=== PATIENT | female | born 1995 | race Caucasian/White ===

== ENCOUNTER 2019-01-27 21:05 | Emergency (ER) | payer OTHER, BC, SELFPAY ==
[2019-01-27 21:11] VITALS: BP 151/84; PULSE 104; RESP 20; TEMP 36.9; O2SAT 100; BMI 18.8
--- NOTE | 2019-01-27 21:42 | ED.HA ---
HPI - Headache General Chief Complaint: Headache Stated Complaint: yellow fluid draining from nose and migraine Time Seen by Provider: 01/27/19 21:42 Source: patient Mode of arrival: ambulatory Limitations: no limitations History of Present Illness HPI Narrative: Patient is a 23-year-old female here for evaluation of right-sided headache. She states she does have a history of headaches or this 1 feels slightly different than prior headaches. She also stated that earlier today she had episodes where she was draining clear fluid out of the left nostril and then turned yellow fluid. She stated this happened when she would bend forward. She denied any head injuries. She states she did have sinus surgery 2 years ago but nothing currently. She does state she does having some sinus congestion. No vision changes. No balance issues. No fevers. Related Data Allergies Allergy/AdvReac Type Severity Reaction Status Date / Time No Known Drug Allergies Allergy Verified 01/27/19 21:15 Review of Systems Constitutional Denies fever(s) and Reports headache(s) ENT Ears, Nose, Mouth, and Throat: Denies vertigo, Denies dizziness and Reports headache(s) Comments: Drainage from left nostril Cardiovascular Denies dyspnea Respiratory Denies dyspnea Musculoskeletal Denies myalgias and Denies arthralgias Integumentary/Breasts Denies rash Neurologic Denies confusion, Denies vertigo, Denies dizziness and Reports headache(s) Psychiatric Denies confusion Hematologic/Lymphatic Denies easy bleeding and Denies easy bruising [facility] Medical History Chronic headaches (Acute) Social History Smoking Status: Never smoker Social History Smoking Status: Never smoker Exam Initial Vital Signs Initial Vital Signs: Vital Signs Temperature 98.5 F 01/27/19 21:11 Pulse Rate 104 H 01/27/19 21:11 Respiratory Rate 20 01/27/19 21:11 Blood Pressure 151/84 H 01/27/19 21:11 Pulse Oximetry 100 01/27/19 21:11 Const General: cooperative, healthy appearing, comfortable, well developed, well groomed and No acute distress Orientation: alert, awake and oriented x3 HENMT Head: normal to inspection and normocephalic Ears: TM's normal bilaterally Nose: external nose normal, nares normal, septum normal, No epistaxis, No nasal discharge and No nasal polyp Face and sinus: face symmetric and tenderness on the left maxilla Mouth: oral mucosae normal Eyes Pupils: PERRL EOM: EOM intact bilaterally Resp Effort & Inspection: normal respiratory effort Auscultation: clear to auscultation bilaterally Cardio Rate: regular rate Rhythm: regular rhythm Pulses: radial pulses present Skin Lesions: no lesions Rashes: no rashes Neuro General: alert, awake and oriented x3 Cognition: normal cognition Speech: speech normal Gait: normal gait Motor: muscle tone normal throughout Sensory Exam: no sensory deficits noted Extrem General: normal to inspection and capillary refill normal Psych Appearance: grossly normal and well kempt Course Vital Signs - 8 hr 01/27/19 21:11 01/27/19 22:49 Temperature 98.5 F Pulse Rate 104 H 84 Respiratory Rate 20 Blood Pressure 151/84 H 117/61 Pulse Oximetry 100 98 MDM - Headache MDM Narrative Medical decision making narrative: The patient is afebrile. No head trauma. She did have a sinus surgery but that was 2 years ago. I have low suspicion that she has draining CSF from her left nostril which is what she was concerned about because she Google her symptoms. She does have a history of headaches. She also has symptoms concerning for sinus disease I suspect that the drainage was secondary to the sinus disease or even an atypical migraine causing these symptoms. She denied offer for medications here in the emergency department for her headache. She has had a CT scan of her head in the past for evaluation of her headaches. Informed her that we could potentially do a CT scan today to evaluate for sinus disease. There is no indication for antibiotics. Patient was given return precautions and follow-up instructions. She had no drainage here. She expressed understanding and agreement plan. Discharge Plan Departure Patient Disposition: Home Clinical Impression: Rhinorrhea Headache Qualifiers: Headache type: unspecified Headache chronicity pattern: unspecified pattern Intractability: not intractable Qualified Code(s): R51 - Headache Discharge Date/Time: 01/27/19 22:52 Interventions: ED Discharge Assessment Last Done: 01/27/19 22:49 Instructions: DI for Sinusitis Activity Restrictions/Additional Instructions: Recommend you start taking a decongestant like we discussed. Contact her primary care doctor for follow-up. You can contact [phone] to talk with the health human resources professional to establish her primary provider here in the area. Return to the emergency department for any new or worsening symptoms
[2019-01-27 22:49] VITALS: BP 117/61; PULSE 84; O2SAT 98
== END 2019-01-27 22:52 | disposition home or self-care (01) ==
PROVIDERS: Emergency Provider Emergency Medicine
DX: J34.89 Other specified disorders of nose and nasal sinuses (principal); R51 Headache
CPT/HCPCS: 99282

== ENCOUNTER → 2020-06-01 10:42 | Outpatient (CLI) | payer OTHER, SELFPAY ==
--- NOTE | 2020-06-01 10:44 | DI.US.S_ITS ---
LIMITED ULTRASOUND OF LEFT BREAST: 06/01/2020 CLINICAL: Painful lumpy left breast. Baseline ultrasound. No prior exams were available for comparison. Color flow and real-time ultrasound of the left breast 9-11 o'clock region were performed. Frye scale images of the real-time examination were reviewed. No mass at the palpable abnormality site. A few small ducts and ridge of fibroglandular tissue. IMPRESSION: NEGATIVE There is no sonographic evidence of malignancy at the site of palpable abnormality. Exam findings were conveyed to the patient. Patient is advised to monitor for significant change. This exam was interpreted at Station ID: [id number]. Electronically Signed By: Regino Smith M.D. slc/:06/01/2020 11:52:38 letter sent: Normal Exam Ultrasound BI-RADS: 1 Negative
== END ==
PROVIDERS: PCP Nurse Practitioner Family; Referring Provider Nurse Practitioner Family; Visit Provider Nurse Practitioner Family
DX: N64.4 Mastodynia (principal); N63.20 Unspecified lump in the left breast, unspecified quadrant
CPT/HCPCS: 76642

== ENCOUNTER 2020-08-02 15:05 | Emergency (ER) | payer OTHER, SELFPAY ==
[2020-08-02] VITALS (11 sets, daily range): BP systolic 102–156; BP diastolic 61–84; PULSE 73–107; RESP 15–24; TEMP 36.5; O2SAT 94–100; BMI 20.5
--- NOTE | 2020-08-02 17:20 | DI.RAD.S_ITS ---
PROCEDURE: XR CHEST 1V INDICATIONS: chest pain TECHNIQUE: One view of the chest was acquired. COMPARISON: None. FINDINGS: Surgical changes and devices: None. Lungs and pleura: Lungs are clear. No pleural effusions or pneumothorax. Mediastinum: Mediastinal contours appear normal. Heart size is normal. Bones and chest wall: No suspicious bony lesions. Overlying soft tissues appear unremarkable. IMPRESSION: Portable chest within normal limits. Dictated by: Cayetano Faith M.D. on 08/02/2020 at 16:41 Approved by: Cayetano Faith M.D. on 08/02/2020 at 16:41
[2020-08-02 17:27] LABS: Add Manual Diff / Slide Review NO; Basophils Absolute Auto 100 /uL (0-100); Basophils Percent Auto 0.6 % (0-2); Eosinophils Absolute Auto 600 /uL (0-450); Eosinophils Percent Auto 6.1 % (2-4); Hematocrit 39.8 % (36-46); Hemoglobin 13.4 g/dL (12.0-16.0); Lymphocytes Absolute Auto 2900 /uL (1100-4500); Lymphocytes Percent Auto 30.4 % (25-40); Mean Corpuscular HGB Conc 33.8 % (30-36); Mean Corpuscular Hemoglobin 31.1 PG (26-34); Mean Corpuscular Volume 92.2 fL (80-100); Monocytes Absolute Auto 800 /uL (0-900); Monocytes Percent Auto 8.3 % (3-14); Neutrophils Absolute Auto 5200 /uL (1500-7000); Neutrophils Percent Auto 54.6 % (50-75); Platelet Count 446 X10^3/uL (150-400); Red Blood Cell Count 4.31 X10^6/uL (4.0-5.2); Red Cell Distribution Width 12.5 % (11.6-14.8); White Blood Cell Count 9.5 X10^3/uL (4.5-11.0)
[2020-08-02 17:29] LABS: INR 1.1 (0.9-1.3); Prothrombin Time 12.3 SECONDS (10.1-12.7)
[2020-08-02 17:31] LABS: PTT Partial Thromboplastin Tim 35 SECONDS (26.4-36.2)
[2020-08-02 17:33] LABS: Alanine Aminotransferase 17 IU/L (<35); Albumin 4.7 g/dL (3.5-5.0); Albumin Globulin Ratio 1.2 (1.0-2.8); Alkaline Phosphatase 108 U/L (38-126); Aspartate Aminotransferase 30 IU/L (14-36); BUN Creatinine Ratio 23.1 (6-22); Bilirubin Total 0.5 mg/dL (0.2-1.3); Blood Urea Nitrogen 15 mg/dL (7-17); Calcium 10.3 mg/dL (8.4-10.2); Carbon Dioxide 29 mmol/L (22-32); Chloride 105 mmol/L (98-107); Creatine Kinase 83 U/L (30-135); Estimated Glomerular Filt Rate > 60.0 mL/min (>60); Globulin 3.8 g/dL (1.7-4.1); Glucose 95 mg/dL (70-100); HEMOLYSIS < 15 (0-50); Lipase 67 U/L (23-300); Sodium 140 mmol/L (137-145); Total Protein 8.5 g/dL (6.3-8.2)
[2020-08-02 17:45] LABS: Troponin I < 0.012 ng/mL (0.01-0.034)
--- NOTE | 2020-08-02 17:48 | ED_ITS ---
HPI - Chest Pain <NEW Cook - Last Filed: 08/03/20 00:04> General Chief Complaint: Chest Pain Stated Complaint: states bad chest pain, hurts to breath Time Seen by Provider: 08/02/20 16:54 Source: patient Mode of arrival: Ambulatory Limitations: no limitations History of Present Illness HPI narrative: This is a 24-year-old female, nonsmoker, who has past medical history significant for frequent headaches and sinus infection with surgery presents to ED with chief complain of left-sided chest discomfort radiating to left shoulder and neck. Patient reports increases with bending forward and in supine position and taking breaths in. Prior to this patient had headache and n lorna pain that she woke up with 4 days ago and she was seen at walk-in clinic yesterday and received IM injection of Toradol and discharged to home with prednisone which she had not started yet. However, her headache and neck pain seemed resolved at this time. Patient reports chest pain is pretty constant and sharp in character. Patient denies recent bedrest, long travel, calf pain, history of blood clots, or currently taking estrogen hormones. Patient denies significant history of cardiac disease in family. She uses marijuana very rarely and denies other drug use. Patient denies fever, chills, lightheadedness, short of breath. She feels fatigue and reports some nausea but only when she brushes her teeth which is unusual for her and has been burping all day. Patient had taken ibuprofen this morning without much improvement. Patient had runny nose and sneezing 2 weeks ago but this has been resolved. LMP 2 days ago. Patient denies IV drug use. Related Data Home Medications Medication Instructions Recorded Confirmed acetaminophen 500 mg tablet 1,000 mg PO QID PRN 04/24/20 08/01/20 ibuprofen 200 mg tablet 800 mg PO Q6H PRN tab 04/24/20 08/01/20 Previous Rx's Medication Instructions Recorded prednisone 20 mg tablet 20 mg PO DAILY 3 Days #3 tab 08/01/20 Allergies Allergy/AdvReac Type Severity Reaction Status Date / Time shellfish derived Allergy Severe Anaphylaxis Verified 08/01/20 16:23 melons Allergy Severe Anaphylaxis Uncoded 05/28/20 09:00 Review of Systems <NEW Cook - Last Filed: 08/03/20 00:04> Review of Systems Narrative: General: Denies fever, chills, (+) fatigue, malaise, sweats. HEENT: Denies sinus pain, ear pain, sore throat, difficulty swallowing, dizziness. Respiratory: Denies dyspnea, cough, wheezing, hemoptysis, sputum. Cardiovascular: See HPI Gastrointestinal: Denies (+) nausea when brushing teeth, (+) frequent belching, vomiting, abdominal pain, diarrhea, constipation, melena. : Denies dysuria, frequency, incontinence, hematuria, urinary retention. Musculoskeletal: Denies weakness, joint pain or bony pain. Skin: Denies rash, skin lesions, or other. Neurologic: Denies weakness, headache, numbness, change in speech, confusion, seizures, incoordination. Psychiatric: No concerning psychosocial issues. 12-point review of systems is negative except for those stated above. Patient History <NEW Cook - Last Filed: 08/03/20 00:04> Medical History Allergies Anxiety (2013) Chronic headaches Depression (2013) Encounter for routine gynecological examination Headache Irregular menstrual cycle Menorrhagia Neck pain Ovarian cyst Painful lumpy left breast Painful menstrual flow Sinusitis Surgical History Anesthesia History of sinus surgery (2015) Family History Father Mental health problem MDD (major depressive disorder) Alcoholism Grandfather Cancer Grandmother Cancer Diabetes mellitus Brain aneurysm Grandfather Cancer Alcoholism Grandmother Mental health problem Social History Smoking Status: Never smoker second hand exposure: No alcohol intake: current (3-4 drinks per month ) substance use type: does not use Smoking Status: Never smoker alcohol intake frequency: 0-2 drinks per day Substance Use Type: does not use Exam <NEW Cook - Last Filed: 08/03/20 00:04> Narrative Exam Narrative: GEN: Alert, oriented x 3, well appearing and nourished, and in no acute distress. Head: Normal cephalic, atraumatic. No scalp or temporal tenderness, palpable mass or rash. EYES: Pupils are equal, round, and reactive to light and accommodation. Extraocular muscles are intact bilaterally. There is no subconjunctival hemorrhage, exudate and sclera non-icteric. ENT: Hearing grossly intact. Nose without bleeding, purulent discharge or deviation. Mucous membrane moist, no mucosal lesion. Throat without erythema, tonsillar hypertrophy or exudate. Uvula in midline, airway patent. Neck: Trachea in midline. No JVD, non-tender without lymphadenopathy. No masses or thyroid megaly. Supple, non-tender and no meningeal signs. CARDIAC: Normal regular rate and rhythm without murmurs, gallops, or rubs. No chest wall tenderness. No peripheral edema, cyanosis or pallor. Capillary refill is less than 2 seconds. RESPIRATORY: Lungs are clear to auscultate bilaterally. No cough, wheezes, ra les, or rhonchi. No stridor, respiratory distress, increase work of breathing, or accessary muscle used. ABD: Abdomen soft, nontender and non-distended. No guarding or rebound tenderness to palpate. Bowel sounds are normal in all 4 quadrants. There is no palpable masses or organomegaly. EXT: Full painless ROM of all extremities with no loss of sensation, strength, effusion or edema. SKIN: Warm, dry, normal color for patient. No erythema, lesions or rash over visible areas. BACK: Nontender without deformity or crepitance. No flank tenderness. NEUROLOGICAL: Alert and oriented to place, time and person. Sensation and motor function intact bilaterally. No facial droops, dysphasia. PSYCHIATRIC: Good judgement and reason, without hallucinations, abnormal affect or abnormal behaviors during the examination. Patient is not suicidal. Initial Vital Signs Initial Vital Signs: Vital Signs Temperature 97.7 F 08/02/20 15:15 Pulse Rate 73 08/02/20 15:15 Respiratory Rate 15 08/02/20 15:15 Blood Pressure 156/84 H 08/02/20 15:15 Pulse Oximetry 98 08/02/20 15:15 <Kimberley Montgomery DO - Last Filed: 08/03/20 04:08> Initial Vital Signs Initial Vital Signs: Vital Signs Temperature 97.7 F 08/02/20 15:15 Pulse Rate 73 08/02/20 15:15 Respiratory Rate 15 08/02/20 15:15 Blood Pressure 156/84 H 08/02/20 15:15 Pulse Oximetry 98 08/02/20 15:15 Scores <Geovanni ShannonNEW - Last Filed: 08/03/20 00:04> GCS [place] coma scale eye opening: Spontaneous [place] coma scale verbal response: Orientated [place] coma scale motor response: Obey commands [place] coma scale total score: 15 HEART Score Heart Score history: Slightly Suspicious Heart Score EKG: Normal Heart Score Age: < 45 years old Heart Score risk factors: No known risk factors Heart Score troponin: < or = to normal limit Heart Score Total: 0 Wells' Criteria for PE Clinical signs and symptoms of DVT: No PE is #1 Dx or equally likely: No Heart rate > 100: Yes Immobilization at least 3 days or surg in previous 4 weeks: No History of PE or DVT: No Hemoptysis: No Malignancy w/Treatment within 6 months or palliative: No Wells' PE Score total: 1.5 Citation:: HR in 105 during interview and getting HPI. Course <Geovanni ArambulaangSommerNEW Falcon - Last Filed: 08/03/20 00:04> Orders Ordered: Discontinued Medications Diphenhydramine HCl (Diphenhydramine 50 Mg/Ml Vial) 25 mg IV NOW ONE Stop: 08/02/20 18:39 Last Admin: 08/02/20 18:42 Dose: 25 mg Documented by: DAMEON Ketorolac Tromethamine (Ketorolac 60 Mg/2 Ml Vial) 15 mg IV NOW ONE Stop: 08/02/20 17:34 Last Admin: 08/02/20 17:49 Dose: 15 mg Documented by: DAMEON Reevaluation(s) Reevaluation #1: Patient reports discomfort slightly improved after the IV Toradol. Informed patient with elevated D-dimer, CRP, ESR and will add CT chest test which she agrees. Patient reports has allergies to shellfish and had received IV Benadryl in the past. Will premedicate patient and proceed with CT chest Time: 18:37 Vital Signs Vital signs: Vital Signs - 8 hr 08/02/20 16:50 08/02/20 16:57 08/02/20 17:00 Pulse Rate 90 87 81 Respiratory Rate 18 21 20 Blood Pressure 130/72 105/61 Pulse Oximetry 100 99 08/02/20 17:30 08/02/20 18:00 08/02/20 18:30 Pulse Rate 85 86 Respiratory Rate 24 16 19 Blood Pressure 112/77 102/61 104/66 Pulse Oximetry 100 98 96 08/02/20 19:11 08/02/20 19:30 08/02/20 20:00 Pulse Rate 107 H 83 82 Respiratory Rate 17 Blood Pressure Pulse Oximetry 94 99 98 08/02/20 20:08 Pulse Rate 94 H Respiratory Rate Blood Pressure 110/69 Pulse Oximetry 99 <Kimberley Montgomery DO - Last Filed: 08/03/20 04:08> Orders Ordered: Discontinued Medications Diphenhydramine HCl (Diphenhydramine 50 Mg/Ml Vial) 25 mg IV NOW ONE Stop: 08/02/20 18:39 Last Admin: 08/02/20 18:42 Dose: 25 mg Documented by: DAMEON Ketorolac Tromethamine (Ketorolac 60 Mg/2 Ml Vial) 15 mg IV NOW ONE Stop: 08/02/20 17:34 Last Admin: 08/02/20 17:49 Dose: 15 mg Documented by: DAMEON Vital Signs Vital signs: Vital Signs - 8 hr 08/02/20 16:50 08/02/20 16:57 08/02/20 17:00 Pulse Rate 90 87 81 Respiratory Rate 18 21 20 Blood Pressure 130/72 105/61 Pulse Oximetry 100 99 08/02/20 17:30 08/02/20 18:00 08/02/20 18:30 Pulse Rate 85 86 Respiratory Rate 24 16 19 Blood Pressure 112/77 102/61 104/66 Pulse Oximetry 100 98 96 08/02/20 19:11 08/02/20 19:30 08/02/20 20:00 Pulse Rate 107 H 83 82 Respiratory Rate 17 Blood Pressure Pulse Oximetry 94 99 98 08/02/20 20:08 Pulse Rate 94 H Respiratory Rate Blood Pressure 110/69 Pulse Oximetry 99 MDM - Chest Pain <NEW Cook - Last Filed: 08/03/20 00:04> Differential Diagnosis Differential diagnosis: Likely atypical chest pain, costochondritis and other (Atypical chest pain, pericarditis, pulmonary embolism, GERD) Medical Records Data Attestation: I reviewed the patient's medical records. Lab Data Attestation: I reviewed the patient's lab results. Result diagrams: 08/02/20 17:15 08/02/20 17:15 Labs: Lab Results 08/02/20 08/02/20 08/02/20 Range/Units 17:15 17:15 17:15 WBC 9.5 (4.5-11.0) X10^3/uL RBC 4.31 (4.0-5.2) X10^6/uL Hgb 13.4 (12.0-16.0) g/dL Hct 39.8 (36-46) % MCV 92.2 (80-100) fL MCH 31.1 (26-34) PG MCHC 33.8 (30-36) % RDW 12.5 (11.6-14.8) % Plt Count 446 H (150-400) X10^3/uL Neut % (Auto) 54.6 (50-75) % Lymph % (Auto) 30.4 (25-40) % [place] % (Auto) 8.3 (3-14) % Eos % (Auto) 6.1 H (2-4) % Baso % (Auto) 0.6 (0-2) % Neut # (Auto) 5200 (6600-5576) /uL Lymph # (Auto) 2900 (0552-5806) /uL [place] # (Auto) 800 (0-900) /uL Eos # (Auto) 600 H (0-450) /uL Baso # (Auto) 100 (0-100) /uL ESR (0-20) MM/HR PT 12.3 (10.1-12.7) SECONDS INR 1.1 (0.9-1.3) APTT 35 (26.4-36.2) SECONDS D-Dimer (<230) ng/mL Sodium 140 (137-145) mmol/L Potassium 4.0 (3.4-5.1) mmol/L Chloride 105 (98-107) mmol/L Carbon Dioxide 29 (22-32) mmol/L BUN 15 (7-17) mg/dL Creatinine 0.65 (0.52-1.04) mg/dL Estimated GFR > 60.0 (>60) mL/min BUN/Creatinine Ratio 23.1 H (6-22) Glucose 95 (70-100) mg/dL Calcium 10.3 H (8.4-10.2) mg/dL Total Bilirubin 0.5 (0.2-1.3) mg/dL AST 30 (14-36) IU/L ALT 17 (<35) IU/L Alkaline Phosphatase 108 (38-126) U/L Total Creatine Kinase 83 (30-135) U/L CK-MB (CK-2) TNP CK-MB (CK-2) Rel Index TNP Troponin I < 0.012 (0.01-0.034) ng/mL C-Reactive Protein (<1.0) mg/dL Total Protein 8.5 H (6.3-8.2) g/dL Albumin 4.7 (3.5-5.0) g/dL Globulin 3.8 (1.7-4.1) g/dL Albumin/Globulin Ratio 1.2 (1.0-2.8) Lipase 67 (23-300) U/L Urine RBC (0-5/HPF) Urine WBC (0-5/HPF) Ur Squamous Epith Cells (0-5/HPF) Urine Bacteria (None) Ur Culture Indicated? COVID-19 PCR (Negative) 08/02/20 08/02/20 08/02/20 Range/Units 17:15 17:15 17:15 WBC (4.5-11.0) X10^3/uL RBC (4.0-5.2) X10^6/uL Hgb (12.0-16.0) g/dL Hct (36-46) % MCV (80-100) fL MCH (26-34) PG MCHC (30-36) % RDW (11.6-14.8) % Plt Count (150-400) X10^3/uL Neut % (Auto) (50-75) % Lymph % (Auto) (25-40) % [place] % (Auto) (3-14) % Eos % (Auto) (2-4) % Baso % (Auto) (0-2) % Neut # (Auto) (8418-4566) /uL Lymph # (Auto) (8553-2222) /uL [place] # (Auto) (0-900) /uL Eos # (Auto) (0-450) /uL Baso # (Auto) (0-100) /uL ESR 25 H (0-20) MM/HR PT (10.1-12.7) SECONDS INR (0.9-1.3) APTT (26.4-36.2) SECONDS D-Dimer 325 H (<230) ng/mL Sodium (137-145) mmol/L Potassium (3.4-5.1) mmol/L Chloride (98-107) mmol/L Carbon Dioxide (22-32) mmol/L BUN (7-17) mg/dL Creatinine (0.52-1.04) mg/dL Estimated GFR (>60) mL/min BUN/Creatinine Ratio (6-22) Glucose (70-100) mg/dL Calcium (8.4-10.2) mg/dL Total Bilirubin (0.2-1.3) mg/dL AST (14-36) IU/L ALT (<35) IU/L Alkaline Phosphatase (38-126) U/L Total Creatine Kinase (30-135) U/L CK-MB (CK-2) CK-MB (CK-2) Rel Index Troponin I (0.01-0.034) ng/mL C-Reactive Protein 1.4 H (<1.0) mg/dL Total Protein (6.3-8.2) g/dL Albumin (3.5-5.0) g/dL Globulin (1.7-4.1) g/dL Albumin/Globulin Ratio (1.0-2.8) Lipase (23-300) U/L Urine RBC (0-5/HPF) Urine WBC (0-5/HPF) Ur Squamous Epith Cells (0-5/HPF) Urine Bacteria (None) Ur Culture Indicated? COVID-19 PCR (Negative) 08/02/20 08/02/20 Range/Units 17:47 19:06 WBC (4.5-11.0) X10^3/uL RBC (4.0-5.2) X10^6/uL Hgb (12.0-16.0) g/dL Hct (36-46) % MCV (80-100) fL MCH (26-34) PG MCHC (30-36) % RDW (11.6-14.8) % Plt Count (150-400) X10^3/uL Neut % (Auto) (50-75) % Lymph % (Auto) (25-40) % [place] % (Auto) (3-14) % Eos % (Auto) (2-4) % Baso % (Auto) (0-2) % Neut # (Auto) (2234-5483) /uL Lymph # (Auto) (5527-9695) /uL [place] # (Auto) (0-900) /uL Eos # (Auto) (0-450) /uL Baso # (Auto) (0-100) /uL ESR (0-20) MM/HR PT (10.1-12.7) SECONDS INR (0.9-1.3) APTT (26.4-36.2) SECONDS D-Dimer (<230) ng/mL Sodium (137-145) mmol/L Potassium (3.4-5.1) mmol/L Chloride (98-107) mmol/L Carbon Dioxide (22-32) mmol/L BUN (7-17) mg/dL Creatinine (0.52-1.04) mg/dL Estimated GFR (>60) mL/min BUN/Creatinine Ratio (6-22) Glucose (70-100) mg/dL Calcium (8.4-10.2) mg/dL Total Bilirubin (0.2-1.3) mg/dL AST (14-36) IU/L ALT (<35) IU/L Alkaline Phosphatase (38-126) U/L Total Creatine Kinase (30-135) U/L CK-MB (CK-2) CK-MB (CK-2) Rel Index Troponin I (0.01-0.034) ng/mL C-Reactive Protein (<1.0) mg/dL Total Protein (6.3-8.2) g/dL Albumin (3.5-5.0) g/dL Globulin (1.7-4.1) g/dL Albumin/Globulin Ratio (1.0-2.8) Lipase (23-300) U/L Urine RBC 1-5/hpf (0-5/HPF) Urine WBC None seen (0-5/HPF) Ur Squamous Epith Cells None seen (0-5/HPF) Urine Bacteria None seen (None) Ur Culture Indicated? Cult not indicated COVID-19 PCR Negative (Negative) Point of Care Testing Test Results Negative Urine Dip Bedside Urine Glucose Negative Bedside Urine Bilirubin - Negative Bedside Urine Ketone - Negative Urine Specific [place] 1.030 Bedside Urine Occult Blood ++ Bedside Urine pH 6.0 Bedside Urine Protein - Negative Bedside Urine Urobilinogen - Negative Bedside Urine Nitrite - Negative Bedside Urine Leukocytes - Negative Esterase Imaging Data Chest x-ray: Radiologist's Impression: [address] [id number] ReportSigned Patient: Trice Leblanc EMR#: [id number]: 1995Acct:[id number]/Sex: / FDate of Service: 08/02/20Loc: EDAccession Number: [id number] Procedure: XR chest 1V Ordering Provider: Geovanni Shannon PROCEDURE: XR CHEST 1V INDICATIONS: chest pain TECHNIQUE: One view of the chest was acquired. COMPARISON: None. FINDINGS: Surgical changes and devices: None. Lungs and pleura: Lungs are clear. No pleural effusions or pneumothorax. Mediastinum: Mediastinal contours appear normal. Heart size is normal. Bones and chest wall: No suspicious bony lesions. Overlying soft tissues appear unremarkable. IMPRESSION: Portable chest within normal limits. Dictated by: Cayetano Faith M.D. on 08/02/2020 at 16:41 Approved by: Cayetano Faith M.D. on 08/02/2020 at 16:41 CT-Chest PE: Radiologist's Impression: [address] [id number] Scan ReportSigned Patient: Trice Leblanc EMR#: [id number]: 1995Acct:[id number]/Sex: te of Service: 08/02/20Loc: EDAccession Number: [id number] Procedure: CT angio chest PE protocol Ordering Provider: Geovanni Shannon [facility] PROCEDURE: CT ANGIO CHEST PE PROTOCOL INDICATIONS: Pleuritic chest pain. Slightly elevated D-dimer, ESR, CRP TECHNIQUE: After the administration of intravenous contrast, 2 mm thick sections acquired from the pulmonary apices to the posterior costophrenic angles. 3-dimensional maximum intensity projection (MIP) coronal and sagittal reformats were then acquired through the thorax. For radiation dose reduction, the following was used: automated exposure control, adjustment of mA and/or kV according to patient size. COMPARISON: None. FINDINGS: Image quality: Excellent. Pulmonary arteries: Pulmonary arteries are normal in size, and demonstrate no intraluminal filling defects to suggest central pulmonary embolism. Lungs and pleura: Lungs are clear. No pleural effusions or pneumothorax. Central and peripheral airways are patent. Mediastinum: Heart size is normal, without pericardial effusion. No mediastinal or hilar adenopathy. Thoracic aorta is normal in caliber and enhancement. Esophagus is normal in caliber, without hiatal hernia. Bones and chest wall: No suspicious bony lesions. Ribs and thoracic spine appear intact throughout. Thyroid gland is normal.. No axillary or supraclavicular adenopathy. Abdomen: Visualized upper abdominal solid organs appear normal in the early arterial phase of enhancement. IMPRESSION: 1. No pulmonary embolism. 2. No acute abnormality of the thorax. Dictated by: Deshaun Miller M.D. on 08/02/2020 at 19:18 Approved by: Deshaun Miller M.D. on 08/02/2020 at 19:25 ECG Data Attestation: I personally reviewed and interpreted this ECG as follows: Prior ECG tracings: not available for review Interpretation: Normal sinus rhythm rate at 78. Normal [place]. [place] interval 120, QRS duration 78, QT/QTC 360/410. No acute ST changes. MDM Narrative Medical decision making narrative: This is a 24 year female who presents to ED with chief complain of left-sided pleuritic chest discomfort radiating to left shoulder and neck. Patient had headache for 4 days and was treated in walk-in clinic yesterday with IM Toradol which was resolved her symptoms. Patient describes her pleuritic chest pain worsen with changing in position but denies other cardiac symptoms. She reports frequent belching today and feeling fatigued. Heart score is 0. Wells criteria for pulmonary embolism score was 1.5. EKG with normal sinus rhythm without acute ST changes. Chest x-ray was negative for acute findings. Cardiac enzymes were negative. Slightly elevated eosinophil of 6.1. Unremarkable chemistry test. Normal lipase. Given wells criteria for PE score was 1.5 with pleuritic chest pain and tachycardia, D-dimer was ordered and obtained. Mildly elevated D-dimer of 89 for her age. Also, madina christopher has increasing pain with changing in position and concerned for pericarditis and CRP any ESR were ordered which were mildly elevated. With these abnormal lab findings, CT chest test was ordered. CT test indicates no pulmonary embolism. No pleural effusion or pneumothorax and no acute abnorm ality the thorax. Patient had mild URI symptoms 2 weeks ago and concerned for Covid and its cardiac effect and test was obtained. Negative Covid test. Patient received IV Toradol and reports improved discomfort. Patient advised to follow-up with primary care physician for further cardiac workup. With increased CRP, ESR, eosinophil, it is likely patient's chest pain is related to the inflammatory etiology. And Advised to take NSAIDS and Tyelnol as needed. Strict return precautions were discussed with patient and she verbalized understanding and agreement with the treatment plan. <Kimberley Montgomery, DO - Last Filed: 08/03/20 04:08> Lab Data Labs: Lab Results 08/02/20 08/02/20 08/02/20 Range/Units 17:15 17:15 17:15 WBC 9.5 (4.5-11.0) X10^3/uL RBC 4.31 (4.0-5.2) X10^6/uL Hgb 13.4 (12.0-16.0) g/dL Hct 39.8 (36-46) % MCV 92.2 (80-100) fL MCH 31.1 (26-34) PG MCHC 33.8 (30-36) % RDW 12.5 (11.6-14.8) % Plt Count 446 H (150-400) X10^3/uL Neut % (Auto) 54.6 (50-75) % Lymph % (Auto) 30.4 (25-40) % [place] % (Auto) 8.3 (3-14) % Eos % (Auto) 6.1 H (2-4) % Baso % (Auto) 0.6 (0-2) % Neut # (Auto) 5200 (0260-1525) /uL Lymph # (Auto) 2900 (2439-9362) /uL [place] # (Auto) 800 (0-900) /uL Eos # (Auto) 600 H (0-450) /uL Baso # (Auto) 100 (0-100) /uL ESR (0-20) MM/HR PT 12.3 (10.1-12.7) SECONDS INR 1.1 (0.9-1.3) APTT 35 (26.4-36.2) SECONDS D-Dimer (<230) ng/mL Sodium 140 (137-145) mmol/L Potassium 4.0 (3.4-5.1) mmol/L Chloride 105 (98-107) mmol/L Carbon Dioxide 29 (22-32) mmol/L BUN 15 (7-17) mg/dL Creatinine 0.65 (0.52-1.04) mg/dL Estimated GFR > 60.0 (>60) mL/min BUN/Creatinine Ratio 23.1 H (6-22) Glucose 95 (70-100) mg/dL Calcium 10.3 H (8.4-10.2) mg/dL Total Bilirubin 0.5 (0.2-1.3) mg/dL AST 30 (14-36) IU/L ALT 17 (<35) IU/L Alkaline Phosphatase 108 (38-126) U/L Total Creatine Kinase 83 (30-135) U/L CK-MB (CK-2) TNP CK-MB (CK-2) Rel Index TNP Troponin I < 0.012 (0.01-0.034) ng/mL C-Reactive Protein (<1.0) mg/dL Total Protein 8.5 H (6.3-8.2) g/dL Albumin 4.7 (3.5-5.0) g/dL Globulin 3.8 (1.7-4.1) g/dL Albumin/Globulin Ratio 1.2 (1.0-2.8) Lipase 67 (23-300) U/L Urine RBC (0-5/HPF) Urine WBC (0-5/HPF) Ur Squamous Epith Cells (0-5/HPF) Urine Bacteria (None) Ur Culture Indicated? COVID-19 PCR (Negative) 08/02/20 08/02/20 08/02/20 Range/Units 17:15 17:15 17:15 WBC (4.5-11.0) X10^3/uL RBC (4.0-5.2) X10^6/uL Hgb (12.0-16.0) g/dL Hct (36-46) % MCV (80-100) fL MCH (26-34) PG MCHC (30-36) % RDW (11.6-14.8) % Plt Count (150-400) X10^3/uL Neut % (Auto) (50-75) % Lymph % (Auto) (25-40) % [place] % (Auto) (3-14) % Eos % (Auto) (2-4) % Baso % (Auto) (0-2) % Neut # (Auto) (0041-6956) /uL Lymph # (Auto) (4734-4389) /uL [place] # (Auto) (0-900) /uL Eos # (Auto) (0-450) /uL Baso # (Auto) (0-100) /uL ESR 25 H (0-20) MM/HR PT (10.1-12.7) SECONDS INR (0.9-1.3) APTT (26.4-36.2) SECONDS D-Dimer 325 H (<230) ng/mL Sodium (137-145) mmol/L Potassium (3.4-5.1) mmol/L Chloride (98-107) mmol/L Carbon Dioxide (22-32) mmol/L BUN (7-17) mg/dL Creatinine (0.52-1.04) mg/dL Estimated GFR (>60) mL/min BUN/Creatinine Ratio (6-22) Glucose (70-100) mg/dL Calcium (8.4-10.2) mg/dL Total Bilirubin (0.2-1.3) mg/dL AST (14-36) IU/L ALT (<35) IU/L Alkaline Phosphatase (38-126) U/L Total Creatine Kinase (30-135) U/L CK-MB (CK-2) CK-MB (CK-2) Rel Index Troponin I (0.01-0.034) ng/mL C-Reactive Protein 1.4 H (<1.0) mg/dL Total Protein (6.3-8.2) g/dL Albumin (3.5-5.0) g/dL Globulin (1.7-4.1) g/dL Albumin/Globulin Ratio (1.0-2.8) Lipase (23-300) U/L Urine RBC (0-5/HPF) Urine WBC (0-5/HPF) Ur Squamous Epith Cells (0-5/HPF) Urine Bacteria (None) Ur Culture Indicated? COVID-19 PCR (Negative) 08/02/20 08/02/20 Range/Units 17:47 19:06 WBC (4.5-11.0) X10^3/uL RBC (4.0-5.2) X10^6/uL Hgb (12.0-16.0) g/dL Hct (36-46) % MCV (80-100) fL MCH (26-34) PG MCHC (30-36) % RDW (11.6-14.8) % Plt Count (150-400) X10^3/uL Neut % (Auto) (50-75) % Lymph % (Auto) (25-40) % [place] % (Auto) (3-14) % Eos % (Auto) (2-4) % Baso % (Auto) (0-2) % Neut # (Auto) (8486-1452) /uL Lymph # (Auto) (2271-2976) /uL [place] # (Auto) (0-900) /uL Eos # (Auto) (0-450) /uL Baso # (Auto) (0-100) /uL ESR (0-20) MM/HR PT (10.1-12.7) SECONDS INR (0.9-1.3) APTT (26.4-36.2) SECONDS D-Dimer (<230) ng/mL Sodium (137-145) mmol/L Potassium (3.4-5.1) mmol/L Chloride (98-107) mmol/L Carbon Dioxide (22-32) mmol/L BUN (7-17) mg/dL Creatinine (0.52-1.04) mg/dL Estimated GFR (>60) mL/min BUN/Creatinine Ratio (6-22) Glucose (70-100) mg/dL Calcium (8.4-10.2) mg/dL Total Bilirubin (0.2-1.3) mg/dL AST (14-36) IU/L ALT (<35) IU/L Alkaline Phosphatase (38-126) U/L Total Creatine Kinase (30-135) U/L CK-MB (CK-2) CK-MB (CK-2) Rel Index Troponin I (0.01-0.034) ng/mL C-Reactive Protein (<1.0) mg/dL Total Protein (6.3-8.2) g/dL Albumin (3.5-5.0) g/dL Globulin (1.7-4.1) g/dL Albumin/Globulin Ratio (1.0-2.8) Lipase (23-300) U/L Urine RBC 1-5/hpf (0-5/HPF) Urine WBC None seen (0-5/HPF) Ur Squamous Epith Cells None seen (0-5/HPF) Urine Bacteria None seen (None) Ur Culture Indicated? Cult not indicated COVID-19 PCR Negative (Negative) Point of Care Testing Test Results Negative Urine Dip Bedside Urine Glucose Negative Bedside Urine Bilirubin - Negative Bedside Urine Ketone - Negative Urine Specific [place] 1.030 Bedside Urine Occult Blood ++ Bedside Urine pH 6.0 Bedside Urine Protein - Negative Bedside Urine Urobilinogen - Negative Bedside Urine Nitrite - Negative Bedside Urine Leukocytes - Negative Esterase Discharge Plan Departure Patient Disposition: Home Clinical Impression: Atypical chest pain Instructions: DI for Atypical Chest Pain Activity Restrictions/Additional Instructions: You have been diagnosed with [atypical chest pain. No indications for heart at tack from EKG and lab test. Normal EKG. Mildly increased CRP of 1.4 and D- dimer. Chest CT no indications for pulmonary embolism or pericardial effusion. Lungs are clear for infection, pneumothorax. Concerns for pericarditis without effusion.]. What to do: *Take your medications as directed. You can take [id number] Tylenol and NSAIDS such as Motrin, ibuprofen, Naprosyn, or Aleve with food as needed for pain. *Follow up with your primary care provider in 2-3 days, call for an appointment. Let them know you were seen in the ED and that we asked you to be seen in follow up. You may need further workup if pain continues. *Return to ED if you have any new, worsening, or concerning symptoms, such as [worsening pain, short of breath, dizziness, nausea and vomiting, fever, or any acute concerns]. Prescriptions: No Action prednisone 20 mg tablet 20 mg PO DAILY 3 Days Qty: 3 RF: 0 ibuprofen 200 mg tablet 800 mg PO Q6H PRNRF: 0 acetaminophen [Tylenol Extra Strength] 500 mg tablet 1,000 mg PO QID PRNRF: 0 Referrals: Conrado Song ARNP [Primary Care Provider] - <Kimberley Montgomery DO - Last Filed: 08/03/20 04:08> Cosign ED Attending Cosignature Attestation: I was immediately available in the department for consultation. Documentation has been reviewed. I agree with assessment and plan.
[2020-08-02] MEDS: KETOROLAC 60 MG/2 ML VIAL 15 MG IV (17:49)
[2020-08-02 17:54] LABS: D Dimer 325 ng/mL (<230)
[2020-08-02 17:59] LABS: Erythrocyte Sedimentation Rate 25 MM/HR (0-20)
[2020-08-02 18:05] LABS: C-Reactive Protein Quant 1.4 mg/dL (<1.0)
[2020-08-02 18:17] LABS: COVID19 -Nasal RAPID Negative (Negative)
--- NOTE | 2020-08-02 18:38 | DI.CT.S_ITS ---
PROCEDURE: CT ANGIO CHEST PE PROTOCOL INDICATIONS: Pleuritic chest pain. Slightly elevated D-dimer, ESR, CRP TECHNIQUE: After the administration of intravenous contrast, 2 mm thick sections acquired from the pulmonary apices to the posterior costophrenic angles. 3-dimensional maximum intensity projection (MIP) coronal and sagittal reformats were then acquired through the thorax. For radiation dose reduction, the following was used: automated exposure control, adjustment of mA and/or kV according to patient size. COMPARISON: None. FINDINGS: Image quality: Excellent. Pulmonary arteries: Pulmonary arteries are normal in size, and demonstrate no intraluminal filling defects to suggest central pulmonary embolism. Lungs and pleura: Lungs are clear. No pleural effusions or pneumothorax. Central and peripheral airways are patent. Mediastinum: Heart size is normal, without pericardial effusion. No mediastinal or hilar adenopathy. Thoracic aorta is normal in caliber and enhancement. Esophagus is normal in caliber, without hiatal hernia. Bones and chest wall: No suspicious bony lesions. Ribs and thoracic spine appear intact throughout. Thyroid gland is normal.. No axillary or supraclavicular adenopathy. Abdomen: Visualized upper abdominal solid organs appear normal in the early arterial phase of enhancement. IMPRESSION: 1. No pulmonary embolism. 2. No acute abnormality of the thorax. Dictated by: Deshaun Miller M.D. on 08/02/2020 at 19:18 Approved by: Deshaun Miller M.D. on 08/02/2020 at 19:25
[2020-08-02] MEDS: diphenhydrAMINE 50 MG/ML VIAL 25 MG IV (18:42)
[2020-08-02 19:07] LABS: Bacteria Urine None Seen; WBC Urine None Seen (0-5/HPF)
[2020-08-02 19:30] LABS: Culture Indicated Urine Cult Not Indicated; RBC Urine 1-5/HPF (0-5/HPF); Squamous Epithelial Cell Urine None Seen (0-5/HPF)
== END 2020-08-02 20:21 | disposition home or self-care (01) ==
PROVIDERS: Emergency Provider Nurse Practitioner Family; PCP Nurse Practitioner Family
DX: R07.89 Other chest pain (principal); M25.512 Pain in left shoulder; M54.2 Cervicalgia
CPT/HCPCS: 36415; 71045; 71275; 80053; 81003; 81015; 81025; 82550; 83690; 84484; 85025; 85379; 85610; 85651; 85730; 86140; 87635; 93005; 93010; 96374; 96375; 99283; J1200; J1885; Q9967

== ENCOUNTER → 2021-01-31 15:45 | Outpatient (CLI) | payer OTHER, SELFPAY | PROVIDERS: PCP Nurse Practitioner Family; Visit Provider Physician Assistant | DX: R30.0 Dysuria (principal) | CPT/HCPCS: 87086 ==

== ENCOUNTER 2021-02-01 11:15 | Emergency (ER) | payer OTHER, SELFPAY ==
[2021-02-01 11:15] VITALS: BP 144/63; PULSE 128; RESP 16; TEMP 36.4; O2SAT 99
[2021-02-01 11:22] VITALS: BP 144/63
[2021-02-01 11:23] VITALS: O2SAT 97
--- NOTE | 2021-02-01 11:29 | ED_ITS ---
HPI - General Adult General Chief complaint: Urogenital-Female Stated complaint: possible kidney stone Time Seen by Provider: 02/01/21 11:18 Source: patient Mode of arrival: Ambulatory Limitations: no limitations History of Present Illness HPI narrative: 25-year-old female who is here for evaluation of approximately 1 week of right-sided pelvic discomfort. She states that it has been constant for the past week there have been times where was worse than others. She also has had 2 episodes of right-sided flank pain. No rashes. No history of sexually transmitted diseases. No concern about sexually transmitted diseases. Was seen yesterday and had a urine sample done was told there was blood in her urine. She states that she has had some constipation but no diarrhea. No fevers. Some discomfort with urination but no change with bowel movements. Related Data Home Medications Medication Instructions Recorded Confirmed acetaminophen 500 mg tablet 1,000 mg PO QID PRN 04/24/20 01/31/21 ibuprofen 200 mg tablet 800 mg PO Q6H PRN tab 04/24/20 01/31/21 cholecalciferol (vitamin D3) 25 25 mcg PO DAILY 11/19/20 01/31/21 mcg (1,000 unit) capsule multivitamin 1 tab PO DAILY 11/19/20 01/31/21 vitamin B complex 1 tab PO DAILY 11/19/20 01/31/21 Previous Rx's Medication Instructions Recorded hydrocodone-acetaminophen 1 tab PO Q4-6H PRN #6 tab 02/01/21 ondansetron 4 mg PO Q6H PRN #12 tab 02/01/21 Allergies Allergy/AdvReac Type Severity Reaction Status Date / Time shellfish derived Allergy Severe Anaphylaxis Verified 02/01/21 11:30 melons Allergy Severe Anaphylaxis Uncoded 01/31/21 15:39 Review of Systems Constitutional Constitutional: Denies fever(s) Cardiovascular Cardiovascular: Reports system reviewed and no additional complaints, except as documented Respiratory Respiratory: Reports system reviewed and no additional complaints, except as documented Gastrointestinal Gastrointestinal: Denies abdominal pain, Reports constipation, Reports nausea and Denies vomiting Genitourinary Genitourinary: Reports pelvic pain Musculoskeletal Musculoskeletal: Reports back pain Integumentary/Breasts Skin/Breast: Denies rash Neurologic Neurologic: Denies behavioral changes Psychiatric Psychiatric: Denies behavioral changes Hematologic/Lymphatic On Anticoagulants: No Allergic/Immunologic Allergic/Immunologic: Denies urticaria Patient History Medical History Allergies Anxiety (2013) Chronic headaches Depression (2013) Encounter for routine gynecological examination Headache Irregular menstrual cycle Menorrhagia Neck pain Ovarian cyst Painful lumpy left breast Painful menstrual flow Sinusitis Surgical History Anesthesia History of sinus surgery (2015) Family History Father Mental health problem MDD (major depressive disorder) Alcoholism Grandfather Cancer Grandmother Cancer Diabetes mellitus Brain aneurysm Grandfather Cancer Alcoholism Grandmother Mental health problem Social History marital status: unmarried,living together household members: significant other occupational status: employed Smoking Status: Never smoker second hand exposure: No alcohol intake: current substance use type: does not use Smoking Status: Never smoker alcohol intake frequency: 0-2 drinks per day Substance Use Type: does not use Exam Initial Vital Signs Initial Vital Signs: Vital Signs Temperature 97.6 F 02/01/21 11:15 Pulse Rate 128 H 02/01/21 11:15 Respiratory Rate 16 02/01/21 11:15 Blood Pressure 144/63 H 02/01/21 11:15 Pulse Oximetry 99 02/01/21 11:15 Const General: cooperative and comfortable Limitations: mental status not altered HENMT Head: normal to inspection and normocephalic Resp Effort & Inspection: normal respiratory effort Auscultation: clear to auscultation bilaterally Cardio Rate: tachycardic Rhythm: regular rhythm GI Inspection: non-distended Palpation: soft, No firm and No tender Other: Right adnexa discomfort Back/Spine/Pelvis Back: No CVA tenderness Skin Lesions: no lesions Rashes: no rashes Neuro General: patient alert, patient awake and patient oriented x3 Extrem General: normal to inspection and capillary refill normal Psych Appearance: grossly normal and well kempt Course Orders Ordered: ED Orders 02/01/21 11:38 Complete Blood Count MAN DIFF Stat Comprehensive Metabolic Panel Stat Lipase Stat 02/01/21 11:39 CT kidney ureter bladder (KUB) Stat 02/01/21 11:46 Urine Microscopic Stat Vital Signs Vital signs: Vital Signs - 8 hr 02/01/21 11:15 02/01/21 11:22 02/01/21 11:23 Temperature 97.6 F Pulse Rate 128 H Respiratory Rate 16 Blood Pressure 144/63 H 144/63 H Pulse Oximetry 99 97 02/01/21 12:08 Temperature Pulse Rate 75 Respiratory Rate 16 Blood Pressure 121/65 Pulse Oximetry 98 Medical Decision Making Medical Records Medical records reviewed: Yes I reviewed the patient's medical records. Lab Data Lab results reviewed: Yes I reviewed the patient's lab results. Result diagrams: 02/01/21 11:38 02/01/21 11:38 Labs: Lab Results 02/01/21 02/01/21 02/01/21 Range/Units 11:38 11:38 11:46 WBC 6.6 (4.5-11.0) X10^3/uL RBC 4.11 (4.0-5.2) X10^6/uL Hgb 13.0 (12.0-16.0) g/dL Hct 37.8 (36-46) % MCV 91.9 (80-100) fL MCH 31.7 (26-34) PG MCHC 34.5 (30-36) % RDW 12.1 (11.6-14.8) % Plt Count 361 (150-400) X10^3/uL Total Counted 100 Seg Neutrophils % 45.0 (38-70) % Lymphocytes % (Manual) 28.0 (25-45) % Atypical Lymphs % 10.0 H ( - 0) % Monocytes % (Manual) 4.0 (2-11) % Eosinophils % (Manual) 12.0 H (2-4) % Basophils % (Manual) 1.0 (0-1) % Neutrophils # (Manual) 2970 L (0054-1333) /uL RBC Morphology Normal morphology Sodium 138 (137-145) mmol/L Potassium 3.8 (3.4-5.1) mmol/L Chloride 105 (98-107) mmol/L Carbon Dioxide 24 (22-32) mmol/L BUN 11 (7-17) mg/dL Creatinine 0.64 (0.52-1.04) mg/dL Estimated GFR > 60.0 (>60) mL/min BUN/Creatinine Ratio 17.2 (6-22) Glucose 88 (70-100) mg/dL Calcium 9.9 (8.4-10.2) mg/dL Total Bilirubin 0.7 (0.2-1.3) mg/dL AST 24 (14-36) IU/L ALT 14 (<35) IU/L Alkaline Phosphatase 101 (38-126) U/L Total Protein 7.5 (6.3-8.2) g/dL Albumin 4.4 (3.5-5.0) g/dL Globulin 3.1 (1.7-4.1) g/dL Albumin/Globulin Ratio 1.4 (1.0-2.8) Lipase 44 (23-300) U/L Urine RBC 1-5/hpf (0-5/HPF) Urine WBC 5-10/hpf H (0-5/HPF) Ur Squamous Epith Cells 5-10 /hpf H (0-5/HPF) Urine Bacteria None seen (None) Ur Culture Indicated? Cult not indicated Point of Care Testing Test Results Negative Urine Dip Bedside Urine Glucose Negative Bedside Urine Bilirubin - Negative Bedside Urine Ketone - Negative Urine Specific Derwood 1.020 Bedside Urine Occult Blood ++ Bedside Urine pH 6.5 Bedside Urine Protein - Negative Bedside Urine Urobilinogen - Negative Bedside Urine Nitrite - Negative Bedside Urine Leukocytes - Negative Esterase Point of care testing: Point of Care Testing Test Results Negative Urine Dip Bedside Urine Glucose Negative Bedside Urine Bilirubin - Negative Bedside Urine Ketone - Negative Urine Specific Derwood 1.020 Bedside Urine Occult Blood ++ Bedside Urine pH 6.5 Bedside Urine Protein - Negative Bedside Urine Urobilinogen - Negative Bedside Urine Nitrite - Negative Bedside Urine Leukocytes - Negative Esterase Imaging Data CT scan - abdomen/pelvis: Radiologist's Impression: [address] [id number] Scan ReportSigned Patient: Trice Leblanc EMR#: [id number]: [id number]:[id number]/Sex: 25 / FDate of Service: 02/01/21Loc: EDAccession Number: [id number] Procedure: CT kidney ureter bladder (KUB) Ordering Provider: Zeus De Jesus D.O. PROCEDURE: CT KIDNEY URETER BLADDER (KUB) INDICATIONS: Eval for right-sided stone TECHNIQUE: Noncontrast 5 mm thick sections acquired from the diaphragms to the symphysis. 5 mm thick coronal and sagittal reformats were then performed. For radiation dose reduction, the following was used: automated exposure control, adjustment of mA and/or kV according to patient size. COMPARISON: [facility], CT, CT ANGIO CHEST PE PROTOCOL, 08/02/2020, 18:44. FINDINGS: Image quality: Excellent. Lung bases: Lung bases are clear. Heart size is normal. Urinary system: Both kidneys are normal in size. Suspect right distal ureter obstructing calculus measuring 0.2 cm, (3/65). Minimal prominence of the right renal collecting system compared to the left. Punctate calcification in the left pelvis is likely a phlebolith. Both ureters appear non-dilated throughout their expected courses. Bladder is mostly decompressed; no calcified bladder stones. Other solid organs: Liver is normal in size. Small cyst in the right lobe of liver. Gallbladder is unremarkable. Pancreas is normal in contours. Spleen is normal in size. No adrenal nodules. Peritoneum and bowel: Unenhanced bowel loops demonstrate normal wall thickness and caliber. No free fluid or air. Nodes and vessels: No retroperitoneal or mesenteric adenopathy by size criteria. Aorta and inferior vena cava are normal in caliber. Abdominal wall: No ventral hernias. Pelvis: No free pelvic fluid. No inguinal hernias or adenopathy. Anteverted uterus. Bones: No suspicious bony lesions. No vertebral body compression fractures. IMPRESSION: 1. Distal right ureter obstructing calculus measuring 0.2 cm. Minimal prominence of the right renal collecting system compared to the left. 2. Prominent stool in the right colon. Dictated by: Regino Smith M.D. on 02/01/2021 at 12:25 Approved by: Regino Smith M.D. on 02/01/2021 at 12:33 MDM Narrative Medical decision making narrative: Kidney functions unremarkable, urinalysis shows no signs of infection. The CT scan does show a right-sided distal ureteral stone which I suspect is the cause of her symptoms. We did discuss ureteral stones. I feel we can hold on further workup and she was given return precautions. She expressed understanding and agreement. Discharge Plan Departure Patient Disposition: Home Clinical Impression: Kidney stones Instructions: DI for Kidney Stones Activity Restrictions/Additional Instructions: The CT scan today does show a right-sided kidney stone. There were nausea medicine and pain medicine sent to the pharmacy of your choice. Please take these as directed and as needed. Return to the emergency department for any fevers, pain that is not controlled with these medications, inability to tolerate oral intake or any other new or worsening symptoms. Prescriptions: New ondansetron 4 mg tablet,disintegrating 4 mg PO Q6H PRN (Reason: nausea and vomiting) Qty: 12 RF: 0 hydrocodone-acetaminophen 5-325 mg tablet 1 tab PO Q4-6H PRN (Reason: pain) Qty: 6 RF: 0 No Action ibuprofen 200 mg tablet 800 mg PO Q6H PRNRF: 0 acetaminophen [Tylenol Extra Strength] 500 mg tablet 1,000 mg PO QID PRNRF: 0 multivitamin Tablet 1 tab PO DAILY RF: 0 cholecalciferol (vitamin D3) 25 mcg (1,000 unit) capsule 25 mcg PO DAILY RF: 0 vitamin B complex [B Complex-Vitamin B12] Tablet 1 tab PO DAILY RF: 0 Referrals: Conrado Song ARNP [Primary Care Provider] -
--- NOTE | 2021-02-01 11:39 | DI.CT.S_ITS ---
PROCEDURE: CT KIDNEY URETER BLADDER (KUB) INDICATIONS: Eval for right-sided stone TECHNIQUE: Noncontrast 5 mm thick sections acquired from the diaphragms to the symphysis. 5 mm thick coronal and sagittal reformats were then performed. For radiation dose reduction, the following was used: automated exposure control, adjustment of mA and/or kV according to patient size. COMPARISON: [facility], CT, CT ANGIO CHEST PE PROTOCOL, 08/02/2020, 18:44. FINDINGS: Image quality: Excellent. Lung bases: Lung bases are clear. Heart size is normal. Urinary system: Both kidneys are normal in size. Suspect right distal ureter obstructing calculus measuring 0.2 cm, (3/65). Minimal prominence of the right renal collecting system compared to the left. Punctate calcification in the left pelvis is likely a phlebolith. Both ureters appear non-dilated throughout their expected courses. Bladder is mostly decompressed; no calcified bladder stones. Other solid organs: Liver is normal in size. Small cyst in the right lobe of liver. Gallbladder is unremarkable. Pancreas is normal in contours. Spleen is normal in size. No adrenal nodules. Peritoneum and bowel: Unenhanced bowel loops demonstrate normal wall thickness and caliber. No free fluid or air. Nodes and vessels: No retroperitoneal or mesenteric adenopathy by size criteria. Aorta and inferior vena cava are normal in caliber. Abdominal wall: No ventral hernias. Pelvis: No free pelvic fluid. No inguinal hernias or adenopathy. Anteverted uterus. Bones: No suspicious bony lesions. No vertebral body compression fractures. IMPRESSION: 1. Distal right ureter obstructing calculus measuring 0.2 cm. Minimal prominence of the right renal collecting system compared to the left. 2. Prominent stool in the right colon. Dictated by: Regino Smith M.D. on 02/01/2021 at 12:25 Approved by: Regino Smith M.D. on 02/01/2021 at 12:33
--- NOTE | 2021-02-01 11:40 | PC.NURSE ---
Patient reports about one week of flank pain, right inner vaginal canal pain that is sharp and stabbing at times. Denies abn bleeding or vaginal discharge. Negative UA at clinic yesterday states there was some microscopic blood. Patient states pain in right flank was excruciating. Mild tenderness to flank area upon palpation of exam.
[2021-02-01 11:48] LABS: Bacteria Urine None Seen
[2021-02-01 11:59] LABS: Hematocrit 37.8 % (36-46); Mean Corpuscular HGB Conc 34.5 % (30-36); Mean Corpuscular Hemoglobin 31.7 PG (26-34); Mean Corpuscular Volume 91.9 fL (80-100); Platelet Count 361 X10^3/uL (150-400); Red Blood Cell Count 4.11 X10^6/uL (4.0-5.2); Red Cell Distribution Width 12.1 % (11.6-14.8); White Blood Cell Count 6.6 X10^3/uL (4.5-11.0)
[2021-02-01 12:00] LABS: Culture Indicated Urine Cult Not Indicated; RBC Urine 1-5/HPF (0-5/HPF); Squamous Epithelial Cell Urine 5-10 /HPF (0-5/HPF); WBC Urine 5-10/HPF (0-5/HPF)
[2021-02-01 12:08] VITALS: BP 121/65; PULSE 75; RESP 16; O2SAT 98
[2021-02-01 12:11] LABS: Neutrophils Absolute Manual 2970 /uL (3000-5900); RBC Morphology Normal Morphology; Total Cells Counted 100
[2021-02-01 12:13] LABS: Alanine Aminotransferase 14 IU/L (<35); Albumin 4.4 g/dL (3.5-5.0); Albumin Globulin Ratio 1.4 (1.0-2.8); Alkaline Phosphatase 101 U/L (38-126); Aspartate Aminotransferase 24 IU/L (14-36); BUN Creatinine Ratio 17.2 (6-22); Bilirubin Total 0.7 mg/dL (0.2-1.3); Blood Urea Nitrogen 11 mg/dL (7-17); Calcium 9.9 mg/dL (8.4-10.2); Carbon Dioxide 24 mmol/L (22-32); Chloride 105 mmol/L (98-107); Estimated Glomerular Filt Rate > 60.0 mL/min (>60); Globulin 3.1 g/dL (1.7-4.1); Glucose 88 mg/dL (70-100); HEMOLYSIS < 15 (0-50); Lipase 44 U/L (23-300); Potassium 3.8 mmol/L (3.4-5.1); Sodium 138 mmol/L (137-145); Total Protein 7.5 g/dL (6.3-8.2)
[2021-02-01 12:57] VITALS: BP 115/73; PULSE 79; RESP 17; O2SAT 99
== END 2021-02-01 13:06 | disposition home or self-care (01) ==
PROVIDERS: Emergency Provider Emergency Medicine; PCP Nurse Practitioner Family
DX: N20.0 Calculus of kidney (principal); R31.9 Hematuria, unspecified; K59.00 Constipation, unspecified
CPT/HCPCS: 36415; 74176; 80053; 81003; 81015; 81025; 83690; 85025; 99284

== ENCOUNTER → 2021-04-26 14:39 | Outpatient (CLI) | payer OTHER, SELFPAY ==
[2021-04-26 15:39] LABS: COVID19 -Nasal RAPID Negative (Negative)
== END ==
PROVIDERS: PCP Nurse Practitioner Family; Visit Provider Physician Assistant
DX: Z20.822 Contact with and (suspected) exposure to COVID-19 (principal)
CPT/HCPCS: 87635